=== PATIENT | male | born 1990 ===

== ENCOUNTER 2022-03-19 00:15 | Emergency (ER) | payer BC ==
[2022-03-19] MEDS ORDERED: Ondansetron 4 MG/2 ML SDV IVPUSH ONE (01:20)
[2022-03-19] MEDS ORDERED: HYDROmorphone 1 MG/ML Syringe IVPUSH ONE (01:20)
[2022-03-19] MEDS ORDERED: Sodium Chloride 0.9% 1,000 ML IV SCH (01:30)
[2022-03-19] MEDS ORDERED: Tamsulosin 0.4 MG Cap.ER PO ONE (03:07)
== END 2022-03-19 04:48 | disposition home or self-care (01) ==
LOC: JD.ED 00:15
DX: N13.2 Hydronephrosis with renal and ureteral calculous obstruction (principal); Z88.0 Allergy status to penicillin
CPT/HCPCS: 74176; 81001; 96361; 96374; 96375; 99284; A9270; J1170; J2405; J7030

== ENCOUNTER 2022-10-29 09:45 | Emergency (ER) | payer BC | END 2022-10-29 11:01 | disposition home or self-care (01) | LOC: JD.ED 09:45 | DX: K60.2 Anal fissure, unspecified (principal); Z88.0 Allergy status to penicillin | CPT/HCPCS: 99282; 99284 ==